=== PATIENT | female | born 1980 | race African-American/Black ===

== ENCOUNTER 2021-11-15 01:08 | Emergency (ER) | payer OTHER ==
[~2021-11-15] VITALS: Ht 162.6 cm; Wt 122.5 kg
[2021-11-15] MEDS ORDERED: KETO10TA2 PO (06:28)
== END 2021-11-15 07:12 | disposition home or self-care (01) ==
LOC: ER 01:08
DX: S80.01XA Contusion of right knee, initial encounter (principal); W05.1XXA Fall from non-moving nonmotorized scooter, initial encounter; Y93.9 Activity, unspecified; Y92.9 Unspecified place or not applicable; Y99.9 Unspecified external cause status